=== PATIENT | male | born 1945 | race Caucasian/White ===

== ENCOUNTER 2016-12-31 06:28 | Outpatient (CLI) | payer MEDICARE, OTHER ==
[~2016-12-31] VITALS: Ht 177.8 cm; Wt 98.4 kg
[2016-12-31] VITALS (8 sets, daily range): BP systolic 116–138; BP diastolic 72–82; PULSE 70–79; RESP 16; TEMP 96.4–98.4; O2SAT 96–98; Ht 177.8 cm; Wt 98.4 kg
[~2016-12-31 06:28] MED LIST: ACET-62 PO; ASPI325T PO; FERR325T40 PO; FLUT16SP EA NOSTRIL; FOLI0.4T2 PO; GLUC100015 PO; HYDR-4074 PO; LISI10TA7 PO; MELO-32 PO; MULT-728 PO; TRAM50TA4 PO
[2016-12-31] MEDS ORDERED: TERB250T4 PO (06:53)
[2016-12-31 08:50] LABS: INR 1.04 (0.76-1.04); PROTHROMBIN TIME 11.3 SEC (9.31-12.49)
[2016-12-31] MEDS ORDERED: ACETAMINOPHEN 325 MG TABLET PO PRN (09:00)
[2016-12-31] MEDS ORDERED: IOHEXOL 300 MG/ML 50ml INJECTION ONE (09:17)
--- NOTE | 2016-12-31 09:26 | NUR ---
IMAGING PT TAKEN TO IMAGING AT [address]
--- NOTE | 2016-12-31 10:01 | NUR ---
BACK TO ROOM PT RETURNED TO ROOM AT 1000. POST OP VITALS STARTED, WNL. PT DENIES PAIN.
[2016-12-31] MEDS ORDERED: FERR220E4 PO (12:00)
[2016-12-31] MEDS ORDERED: SILD100T PO (12:03)
[2016-12-31] MEDS ORDERED: MELO-273 PO (12:03)
[2016-12-31] MEDS ORDERED: ACET-2321 PO (12:03)
--- NOTE | 2016-12-31 12:16 | DI ---
INDICATION: ITS.REASON: radiculopathy Ordering physician:Wilfrid Gonsalves MD Procedure:MYELOGRAM LUMBAR INJECTION FOR CT MYELOGRAM: The procedure including the benefits, risks, and alternatives were explained in detail to the patient. All of their questions were answered. He stated that he understood and wished to proceed. Informed consent was obtained. A preprocedural timeout was performed to confirm the correct patient and procedure. Using sterile technique, local Xylocaine anesthesia, and fluoroscopic guidance throughout, a 22 G spinal needle was advanced from a posterior approach into the subarachnoid space at the L5 level. A fluoroscopic image was then obtained and archived. Removal of the stylet showed clear colorless CSF. 15 cc of Omnipaque 300 was slowly instilled within the intrathecal space. The needle was then removed. Fluoroscopic images were then obtained. Following this, the patient was transferred to the CT department for their scan. Please see the separate CT report. Impression: Successful intrathecal injection of contrast for a CT lumbar myelogram. Fluoroscopy dose: 32.36 mGy (Cumulative air kerma) Robert Calderon RPA/HENRRY performed this under my personal supervision. .
--- NOTE | 2016-12-31 12:24 | NUR ---
DISCHARGE PT DISMISSED TO HOME AT 1215 VIA AMBULATION. GO HOME INSTRUCTIONS GIVEN, PT DRESSED.
--- NOTE | 2016-12-31 14:00 | DI ---
Indication: ITS.REASON: radiculopathy CT MYELOGRAM LUMBAR SPINE: Comparison: Myelogram earlier in the day Technique: Patient was scanned through the lumbar spine with the previously administered intrathecal contrast and dose reduction imaging technology. Reformatted sagittal and coronal images and even 3-D imaging is provided. Findings: Patient demonstrates previous posterior stabilization at L4-5 with posterior hardware in place. No acute vertebral body fractures are suggested. Axial images T12-L1 disc spaces showing no acute findings. L1-2 disc space showed minimal bulging without effect on the overall canal diameter. L2-3 disc space shows mild broad-based bulging causing just slight effacement of the epidural fat although no marked neural foraminal narrowing seen. L3-4 shows mild broad-based disc bulging with some effect on the overall canal diameter and mild bilateral neural foraminal narrowing. This is level above the previous stabilization. L4-5 spaces showing a normal canal diameter. There is some artifact from the hardware in place. L5 S1 disc space showed no marked stenosis although there is narrowing and degenerative change within the disc. Impression: 1. Patient showed postoperative stabilization at L4-5 posteriorly with laminectomy and hardware in place. Although there is mild disc bulging at this level is not leading to significant canal narrowing. 2. Most prominent findings are at the L34 level which is immediately above the site of previous stabilization where there is moderate broad-based disc bulging and neural foraminal narrowing. 3. No marked fractures or malalignments although all the lumbar discs show varying degrees of degenerative change and narrowing. .
== END 2016-12-31 12:15 | disposition home or self-care (01) ==
LOC: IMA.BED 06:28 → SRG 06:29 → IMA.BED 12:15
PROVIDERS: ATTEND Radiology Diagnostic Radiology
DX: M51.16 Intervertebral disc disorders with radiculopathy, lumbar region (principal); D50.9 Iron deficiency anemia, unspecified
CPT/HCPCS: 36415; 62304; 72132; 85049; 85610; Q9967

== ENCOUNTER → 2017-01-14 | Outpatient (CLI) | payer MEDICARE, OTHER ==
[~2017-01-14] MED LIST changes: +ACET-2321 PO; -ACET-62 PO; -ASPI325T PO; +FERR220E4 PO; -FERR325T40 PO; -HYDR-4074 PO; +IOHEXOL 180 MG/ML 20ml INJECTION ONE; +LIDOCAINE 1% (10mg/ml) 5ml VIAL ONE; +MELO-273 PO; -MELO-32 PO; +MethylPREDNISolone ACETATE 40mg/1ml ONE; +SILD100T PO; -TRAM50TA4 PO
--- NOTE | 2017-01-14 11:59 | DI ---
Indication:ITS.REASON: M54.16 RADICULOPATHY Procedure:EPIDURAL INJ.SPINE W FLUO CATH LUMBAR EPIDURAL INJECTION: The patient has low back and radicular pain. The patient has had previous lumbar epidural injections prior to his back surgery that resulted in moderate relief. The details of the procedure, including the benefits, risks, and alternatives were explained to the patient. All of their questions were answered. They stated that they understood and wished to proceed. Informed consent was then obtained. A pre-procedural timeout was performed to confirm the correct patient and procedure. Utilizing aseptic technique, local lidocaine anesthetic, and fluoroscopic guidance throughout, a 22-gauge spinal needle was directed into the lumbar epidural space via an interlaminar approach at the L3-4 level. Contrast was injected to assure proper positioning of the needle tip. A fluoroscopic image was then taken and archived. Subsequently, 120 mg Depo-Medrol was injected into the epidural space. The patient tolerated the procedure well. IMPRESSION: Successful lumbar epidural steroid injection. Fluoroscopy dose: 18.56 mGy (Cumulative air kerma) Robert Calderon RPA/HENRRY performed this under my personal supervision. .
== END ==
LOC: IMA 09:37
PROVIDERS: ATTEND Family Medicine
DX: M54.16 Radiculopathy, lumbar region (principal); M54.5 Low back pain
CPT/HCPCS: 62323; J1030; Q9965